=== PATIENT | male | born 1965 | race Caucasian/White ===

== ENCOUNTER 2017-07-28 10:54 | Emergency (ER) | payer SELFPAY ==
[2017-07-28] MEDS ORDERED: Enalaprilat 1.25 MG/ML SDV IVPUSH ONE (11:12)
[2017-07-28] MEDS ORDERED: Aspirin 81 MG Tab.Chew PO ONE (11:14)
--- NOTE | 2017-07-28 11:14 | EDM.PDOC ---
ED HPI GENERAL MEDICAL PROBLEM - General Chief Complaint: Chest Pain Stated Complaint: CHEST PAIN AND DIZZY Time Seen by Provider: 07/28/17 11:13 Source of Information: Reports: Patient - History of Present Illness INITIAL COMMENTS - FREE TEXT/NARRATIVE: HISTORY AND PHYSICAL: History of present illness: [Patient presents with chest tightness for 2 weeks, he has known hypertension and has been off of his blood pressure medications for a couple weeks lisinopril 40 mg daily is his usual medication. Is received several doses of IV medication lowering his blood pressure somewhat chest tightness has improved resolved unfortunately his IV line infiltrated knee refuses another IV I did provide Klonopin ON 0.1 mg by mouth]Blood pressure is improving he is asymptomatic no fever nausea vomiting diarrhea constipation chest pain shortness breath headache dizziness palpitation about a urine symptoms Lab as belo w Review of systems: As per history of present illness and below otherwise all systems reviewed and negative. Past medical history: As per history of present illness and as reviewed below otherwise noncontributory. Surgical history: As per history of present illness and as reviewed below otherwise noncontributory. Social history: No reported history of drug or alcohol abuse. Family history: As per history of present illness and as reviewed below otherwise noncontributory. Physical exam: HEENT: Atraumatic, normocephalic, pupils reactive, negative for conjunctival pallor or scleral icterus, mucous membranes moist, throat clear, neck supple, nontender, trachea midline. Lungs: Clear to auscultation, breath sounds equal bilaterally, chest nontender. Heart: S1S2, regular, negative for clicks, rubs, or JVD. Abdomen: Soft, nondistended, nontender. Negative for masses or hepatosplenomegaly. Negative for costovertebral tenderness. Pelvis: Stable nontender. Genitourinary: Deferred. Rectal: Deferred. Extremities: Atraumatic, negative for cords or calf pain. Neurovascular unremarkable. Neuro: Awake, alert, oriented. Cranial nerves II through XII unremarkable. Cerebellum unremarkable. Motor and sensory unremarkable throughout. Exam nonfocal. Diagnostics: [CBC CMP UA troponin Chest 1 view EKG] Therapeutics: [Normal saline 1 25 mL per hour Vasotec 1.25 mg IV Aspirin 324 mg chewable ] Lisinopril 40 mg by mouth daily #30 no refill Impression: [Medication noncompliance Hypertensive emergency -resolved] Definitive disposition and diagnosis as appropriate pending reevaluation and review of above. Headache Pain Score (Numeric/FACES): 7 - Related Data Allergies Allergy/AdvReac Type Severity Reaction Status Date / Time No Known Allergies Allergy Verified 07/28/17 11:07 Home Meds: Home Meds Lisinopril 40 mg PO DAILY 07/28/17 [History] Past Medical History Cardiovascular History: Reports: Hypertension Psychiatric History: Reports: PTSD Other Psychiatric History: hx of PTSD - Infectious Disease History Infectious Disease History: Reports: Chicken Pox Social & Family History - Family History Family Medical History: Noncontributory - Tobacco Use Smoking Status *Q: Never Smoker - Caffeine Use Caffeine Use: Reports: Coffee ED ROS GENERAL - Review of Systems Review Of Systems: ROS reveals no pertinent complaints other than HPI. ED EXAM, GENERAL - Physical Exam Exam: See Below Course - Vital Signs Last Recorded V/S: Last Vital Signs Temp 97.8 F 07/28/17 11:04 Pulse 53 L 07/28/17 12:19 Resp 18 07/28/17 11:04 BP 179/113 H 07/28/17 12:19 Pulse Ox 96 07/28/17 11:04 - Orders/Labs/Meds Orders: Active Orders 24 hr Category Date Time Status EKG Documentation Completion [RC] STAT Care 07/28/17 11:12 Active UA W/MICROSCOPIC [URIN] Stat Lab 07/28/17 12:55 Ordered Sodium Chloride 0.9% [Normal Saline] 1,000 ml Med 07/28/17 11:15 Active IV STAT Medication Orders Sodium Chloride (Normal Saline) 1,000 mls @ 125 mls/hr IV STAT JOE Last Admin: 07/28/17 11:22 Dose: 125 mls/hr Labs: Laboratory Tests 07/28/17 07/28/17 07/28/17 Range/Units 11:19 11:19 12:55 WBC 5.67 (4.0-11.0) K/uL RBC 5.84 (4.50-5.90) M/uL Hgb 16.2 (13.0-17.0) g/dL Hct 47.6 (38.0-50.0) % MCV 81.5 (80.0-98.0) fL MCH 27.7 (27.0-32.0) pg MCHC 34.0 (31.0-37.0) g/dL RDW Std Deviation 39.4 (28.0-62.0) fl RDW Coeff of Anjelica 13 (11.0-15.0) % Plt Count 205 (150-400) K/uL MPV 10.00 (7.40-12.00) fL Neut % (Auto) 51.4 (48.0-80.0) % Lymph % (Auto) 39.5 (16.0-40.0) % Graves % (Auto) 7.1 (0.0-15.0) % Eos % (Auto) 1.6 (0.0-7.0) % Baso % (Auto) 0.4 (0.0-1.5) % Neut # (Auto) 2.9 (1.4-5.7) K/uL Lymph # (Auto) 2.2 (0.6-2.4) K/uL Graves # (Auto) 0.4 (0.0-0.8) K/uL Eos # (Auto) 0.1 (0.0-0.7) K/uL Baso # (Auto) 0.0 (0.0-0.1) K/uL Nucleated RBC % 0.0 /100WBC Nucleated RBCs # 0 K/uL Sodium 141 (136-148) mmol/L Potassium 4.0 (3.5-5.1) mmol/L Chloride 104 (98-107) mmol/L Carbon Dioxide 24.8 (21.0-32.0) mmol/L BUN 11 (7.0-18.0) mg/dL Creatinine 1.2 (0.8-1.3) mg/dL Est Cr Clr Drug Dosing 85.63 mL/min Estimated GFR (MDRD) > 60.0 ml/min Glucose 100 (74-106) mg/dL Calcium 9.2 (8.5-10.1) mg/dL Total Bilirubin 0.5 (0.2-1.0) mg/dL AST 26 (15-37) IU/L ALT 30 (14-63) IU/L Alkaline Phosphatase 78 (46-116) U/L Troponin I < 0.050 (0.000-0.056) ng/mL Total Protein 7.9 (6.4-8.2) g/dL Albumin 4.3 (3.4-5.0) g/dL Globulin 3.6 H (2.0-3.5) g/dL Albumin/Globulin Ratio 1.2 L (1.3-2.8) Urine Color YELLOW Urine Appearance CLEAR Urine pH 5.5 (5.0-8.0) Ur Specific [place] >= 1.030 (1.001-1.035) Urine Protein NEGATIVE (NEGATIVE) mg/dL Urine Glucose (UA) NEGATIVE (NEGATIVE) mg/dL Urine Ketones NEGATIVE (NEGATIVE) mg/dL Urine Occult Blood NEGATIVE (NEGATIVE) Urine Nitrite NEGATIVE (NEGATIVE) Urine Bilirubin NEGATIVE (NEGATIVE) Urine Urobilinogen 0.2 (<2.0) EU/dL Ur Leukocyte Esterase NEGATIVE (NEGATIVE) Meds: Medications Generic Name Dose Route Start Last Admin Trade Name Freq PRN Reason Stop Dose Admin Sodium Chloride 1,000 mls @ 125 mls/hr 07/28/17 11:15 07/28/17 11:22 Normal Saline IV 125 mls/hr STAT JOE Administration Discontinued Medications Generic Name Dose Route Start Last Admin Trade Name Freq PRN Reason Stop Dose Admin Aspirin 324 mg 07/28/17 11:14 07/28/17 11:21 Aspirin PO 07/28/17 11:15 324 mg ONETIME ONE Administration Clonidine HCl 0.1 mg 07/28/17 11:56 07/28/17 12:00 Catapres PO 07/28/17 11:57 0.1 mg ONETIME ONE Administration Enalaprilat 1.25 mg 07/28/17 11:12 07/28/17 11:26 Vasotec Iv IVPUSH 07/28/17 11:13 1.25 mg ONETIME ONE Administration Metoprolol Tartrate 5 mg 07/28/17 11:15 07/28/17 12:19 Lopressor IVPUSH 07/28/17 11:26 5 mg Q5M JOE Administration Departure - Departure Time of Disposition: 13:31 Disposition: Home, Self-Care 01 Condition: Good Clinical Impression: Hypertension, Noncompliance with medication regimen - Discharge Information Referrals: PCP,None [Primary Care Provider] - Forms: ED Department Discharge Additional Instructions: Medication as prescribed one month no refill Follow-up and establish care with primary care, call the number provided below to schedule appointme Return if symptoms persist or worsen [facility] - Primary Care [address] [place] [id number] The following information is given to patients seen in the emergency department who are being discharged to home. This information is to outline your options for follow-up care. We provide all patients seen in our emergency department with a follow-up referral. The need for follow-up, as well as the timing and circumstances, are variable depending upon the specifics of your emergency department visit. If you don't have a primary care physician on staff, we will provide you with a referral. We always advise you to contact your personal physician following an emergency department visit to inform them of the circumstance of the visit and for follow-up with them and/or the need for any referrals to a consulting specialist. The emergency department will also refer you to a specialist when appropriate. This referral assures that you have the opportunity for follow-up care with a specialist. All of these measure are taken in an effort to provide you with optimal care, which includes your follow-up. Under all circumstances we always encourage you to contact your private physician who remains a resource for coordinating your care. When calling for follow-up care, please make the office aware that this follow-up is from your recent emergency room visit. If for any reason you are refused follow-up, please contact the [facility] emergency department at and asked to speak to the emergency department charge nurse. - My Orders Last 24 Hours: My Active Orders 07/28/17 11:12 EKG Documentation Completion [RC] STAT 07/28/17 11:15 Sodium Chloride 0.9% [Normal Saline] 1,000 ml IV STAT 07/28/17 12:55 UA W/MICROSCOPIC [URIN] Stat - Assessment/Plan Last 24 Hours: My Active Orders 07/28/17 11:12 EKG Documentation Completion [RC] STAT 07/28/17 11:15 Sodium Chloride 0.9% [Normal Saline] 1,000 ml IV STAT 07/28/17 12:55 UA W/MICROSCOPIC [URIN] Stat
[2017-07-28] MEDS ORDERED: Sodium Chloride 0.9% 1,000 ML IV SCH (11:15)
[2017-07-28] MEDS: Metoprolol Tartrate 5 MG/5 ML SDV IVPUSH SCH ×3 (11:43→12:19)
[2017-07-28] MEDS ORDERED: cloNIDine 0.1 MG Tab PO ONE (11:56)
--- NOTE | 2017-07-28 12:07 | CR ---
EXAMINATION: Portable chest radiograph. HISTORY: Shortness of breath. FINDINGS: The trachea is midline. The cardiomediastinal silhouette is within normal limits. No pulmonary infilt rates, effusions or pneumothorax. Osseous structures appear unremarkable. IMPRESSION: No acute cardiopulmonary process.
[2017-07-28 12:18] LABS: CHLORIDE,CL 104 mmol/L (98-107); SODIUM,NA 141 mmol/L (136-148)
== END 2017-07-28 13:40 | disposition home or self-care (01) ==
LOC: MW.ED 10:54
DX: I10 Essential (primary) hypertension (principal); Z91.14 Patient's other noncompliance with medication regimen; Z79.899 Other long term (current) drug therapy
CPT/HCPCS: 36415; 71045; 80053; 81001; 84484; 85025; 93005; 96361; 96374; 96375; 96376; 99285; A9270; J7040; 99283

== ENCOUNTER 2017-11-23 00:47 | Emergency (ER) | payer SELFPAY ==
--- NOTE | 2017-11-23 01:03 | EDM.PDOC ---
ED HPI GENERAL MEDICAL PROBLEM - General Chief Complaint: General Stated Complaint: MEDICAL CLEARANCE Time Seen by Provider: 11/23/17 01:02 - History of Present Illness INITIAL COMMENTS - FREE TEXT/NARRATIVE: HISTORY AND PHYSICAL: History of present illness: Patient 52-year-old white male presents custody of law enforcement for medical clearance she has no complaints does have history of hypertension Review of systems: As per history of present illness and below otherwise all systems reviewed and negative. Past medical history: As per history of present illness and as reviewed below otherwise noncontributory. Surgical history: As per history of present illness and as reviewed below otherwise noncontributory. Social history: No reported history of drug or alcohol abuse. Family history: As per history of present illness and as reviewed below otherwise noncontributory. Physical exam: HEENT: Atraumatic, normocephalic, pupils reactive, negative for conjunctival pallor or scleral icterus, mucous membranes moist, throat clear, neck supple, nontender, trachea midline. Lungs: Clear to auscultation, breath sounds equal bilaterally, chest nontender. Heart: S1S2, regular, negative for clicks, rubs, or JVD. Abdomen: Soft, nondistended, nontender. Negative for masses or hepatosplenomegaly. Negative for costovertebral tenderness. Pelvis: Stable nontender. Genitourinary: Deferred. Rectal: Deferred. Extremities: Atraumatic, negative for cords or calf pain. Neurovascular unremarkable. Neuro: Awake, alert, oriented. Cranial nerves II through XII unremarkable. Cerebellum unremarkable. Motor and sensory unremarkable throughout. Exam nonfocal. Diagnostics: None Therapeutics: None Impression: #1 medical clearance for incarceration Definitive disposition and diagnosis as appropriate pending reevaluation and review of above. denies pain Pain Score (Numeric/FACES): 0 - Related Data Allergies Allergy/AdvReac Type Severity Reaction Status Date / Time No Known Allergies Allergy Verified 11/23/17 00:56 Home Meds: Home Meds Lisinopril 40 mg PO DAILY 07/28/17 [History] Past Medical History HEENT History: Reports: None Cardiovascular History: Reports: Hypertension Respiratory History: Reports: None Gastrointestinal History: Reports: None Genitourinary History: Reports: None Musculoskeletal History: Reports: None Neurological History: Reports: None Psychiatric History: Reports: PTSD Other Psychiatric History: hx of PTSD Endocrine/Metabolic History: Reports: None Hematologic History: Reports: None Immunologic History: Reports: None Oncologic (Cancer) History: Reports: None Dermatologic History: Reports: None - Infectious Disease History Infectious Disease History: Reports: None - Past Surgical History Head Surgeries/Procedures: Reports: None Social & Family History - Family History Family Medical History: Noncontributory - Tobacco Use Smoking Status *Q: Current Status Unknown - Caffeine Use Caffeine Use: Reports: Coffee - Recreational Drug Use Recreational Drug Use: No ED ROS GENERAL - Review of Systems Review Of Systems: ROS reveals no pertinent complaints other than HPI. ED EXAM, GENERAL - Physical Exam Exam: See Below (See dictation) Course - Vital Signs Last Recorded V/S: Last Vital Signs Temp 36.7 C 11/23/17 00:56 Pulse 94 11/23/17 00:56 Resp 18 11/23/17 00:56 BP 137/98 H 11/23/17 00:56 Pulse Ox 98 11/23/17 00:56 Departure - Departure Time of Disposition: 01:03 Disposition: Home, Self-Care 01 Condition: Good Clinical Impression: Medical clearance for incarceration - Discharge Information *PRESCRIPTION DRUG MONITORING PROGRAM REVIEWED*: Not Applicable *COPY OF PRESCRIPTION DRUG MONITORING REPORT IN PATIENT FRANCOIS: Not Applicable Referrals: Jag Rousseau MD [Primary Care Provider] - Additional Instructions: The following information is given to patients seen in the emergency department who are being discharged to home. This information is to outline your options for follow-up care. We provide all patients seen in our emergency department with a follow-up referral. The need for follow-up, as well as the timing and circumstances, are variable depending upon the specifics of your emergency department visit. If you don't have a primary care physician on staff, we will provide you with a referral. We always advise you to contact your personal physician following an emergency department visit to inform them of the circumstance of the visit and for follow-up with them and/or the need for any referrals to a consulting specialist. The emergency department will also refer you to a specialist when appropriate. This referral assures that you have the opportunity for followup care with a specialist. All of these measure are taken in an effort to provide you with optimal care, which includes your followup. Under all circumstances we always encourage you to contact your private physician who remains a resource for coordinating your care. When calling for followup care, please make the office aware that this follow-up is from your recent emergency room visit. If for any reason you are refused follow-up, please contact the [facility] emergency department at and asked to speak to the emergency department charge nurse. Follow-up primary medical doctor as needed as discussed return as needed as discussed
== END 2017-11-23 01:08 | disposition home or self-care (01) ==
LOC: MW.ED 00:47
DX: Z02.9 Encounter for administrative examinations, unspecified (principal); I10 Essential (primary) hypertension
CPT/HCPCS: 99282

== ENCOUNTER 2018-04-08 12:27 | Emergency (ER) | payer BC ==
[2018-04-08] MEDS ORDERED: Ketorolac 60 MG/2 ML SDV IM ONE (13:44)
--- NOTE | 2018-04-08 14:03 | EDM.PDOC ---
ED HPI GENERAL MEDICAL PROBLEM - General Chief Complaint: Back Pain or Injury Stated Complaint: BACK PAIN Time Seen by Provider: 04/08/18 13:44 Source of Information: Reports: Patient History Limitations: Reports: No Limitations - History of Present Illness INITIAL COMMENTS - FREE TEXT/NARRATIVE: HISTORY AND PHYSICAL: History of present illness: Patient is a 52-year-old male here with complaint of mid to lower back pain. He states he woke up with it this morning and denies any injury or heavy lifting prior. He states it is a constant sharp pain. He denies any dysuria, hematuria, abdominal pain, nausea, vomiting, diarrhea, chest pain, shortness of breath, fevers or chills, saddle anesthesia, loss of bowel or bladder control, lower extremity weakness. He does note that it is more painful when he takes a deep breath in. He states he has a history of back pain 20+ years ago but has not had problems with it since. Past medical history significant for hypertension. Review of systems: As per history of present illness and below otherwise all systems reviewed and negative. Past medical history: As per history of present illness and as reviewed below otherwise noncontributory. Surgical history: As per history of present illness and as reviewed below otherwise noncontributory. Social history: No reported history of drug or alcohol abuse. Family history: As per history of present illness and as reviewed below otherwise noncontributory. Physical exam: General: Patient sitting comfortably in no acute distress and nontoxic appearing HEENT: Atraumatic, normocephalic, pupils reactive, negative for conjunctival pallor or scleral icterus, mucous membranes moist, throat clear, neck supple, nontender, trachea midline. No meningeal signs. Lungs: Clear to auscultation, breath sounds equal bilaterally, chest nontender. Heart: S1S2, regular, negative for clicks, rubs, or overt murmur. Abdomen: Soft, nondistended, nontender. Negative for masses or hepatosplenomegaly. Left CVA tenderness to palpation. Pelvis: Stable nontender. Genitourinary: Deferred. Rectal: Deferred. Spine: No spinous tenderness or step offs to palpation. Left thoracic and lumbar paraspinal tenderness with left CVA tenderness. Extremities: Atraumatic, negative for cords or calf pain. Neurovascular unremarkable. Normal lower extremity strength. Neuro: Awake, alert, oriented. Cranial nerves II through XII unremarkable. Cerebellum unremarkable. Motor and sensory unremarkable throughout. Exam nonfocal. Notes: Diagnostics: UA, thoracolumbar spine x-ray Therapeutics: Toradol 60mg IM Prescriptions: Tramadol Norflex Impression: Thoracolumbar back pain Plan: 1. Heat or ice and Tylenol and Motrin as needed. You may take tramadol and norflex as needed for severe pain. 2. Follow-up with primary care provider 3. Return to ED as needed as discussed Definitive disposition and diagnosis as appropriate pending reevaluation and review of above. Lower Back Pain Score (Numeric/FACES): 7 - Related Data Allergies Allergy/AdvReac Type Severity Reaction Status Date / Time No Known Allergies Allergy Verified 04/08/18 12:43 Home Meds: Home Meds Lisinopril 40 mg PO DAILY 07/28/17 [History] Orphenadrine [Norflex] 100 mg PO BID PRN #10 tab 04/08/18 [Rx] traMADol [Ultram] 50 mg PO Q6H PRN #15 tab 04/08/18 [Rx] Past Medical History - Past Health History Medical/Surgical History: Denies Medical/Surgical History HEENT History: Reports: None Cardiovascular History: Reports: Hypertension Respiratory History: Reports: None Gastrointestinal History: Reports: None Genitourinary History: Reports: None Musculoskeletal History: Reports: None Neurological History: Reports: None Psychiatric History: Reports: PTSD Other Psychiatric History: hx of PTSD Endocrine/Metabolic History: Reports: None Hematologic History: Reports: None Immunologic History: Reports: None Oncologic (Cancer) History: Reports: None Dermatologic History: Reports: None - Infectious Disease History Infectious Disease History: Reports: None - Past Surgical History Head Surgeries/Procedures: Reports: None Social & Family History - Family History Family Medical History: Noncontributory - Tobacco Use Smoking Status *Q: Never Smoker - Caffeine Use Caffeine Use: Reports: Coffee - Recreational Drug Use Recreational Drug Use: No ED ROS GENERAL - Review of Systems Review Of Systems: ROS reveals no pertinent complaints other than HPI. ED EXAM,LOWER BACK PAIN/INJURY - Physical Exam Exam: See Below (see dictation) Course - Vital Signs Last Recorded V/S: Last Vital Signs Temp 96.7 F 04/08/18 12:40 Pulse 62 04/08/18 12:40 Resp 18 04/08/18 12:40 BP 161/95 H 04/08/18 12:40 Pulse Ox 98 04/08/18 12:40 - Orders/Labs/Meds Labs: Laboratory Tests 04/08/18 Range/Units 13:50 Urine Color YELLOW Urine Appearance CLEAR Urine pH 6.0 (5.0-8.0) Ur Specific [place] 1.025 (1.001-1.035) Urine Protein NEGATIVE (NEGATIVE) mg/dL Urine Glucose (UA) NEGATIVE (NEGATIVE) mg/dL Urine Ketones NEGATIVE (NEGATIVE) mg/dL Urine Occult Blood NEGATIVE (NEGATIVE) Urine Nitrite NEGATIVE (NEGATIVE) Urine Bilirubin NEGATIVE (NEGATIVE) Urine Urobilinogen 0.2 (<2.0) EU/dL Ur Leukocyte Esterase NEGATIVE (NEGATIVE) Urine RBC 0-1 (0-2/HPF) Urine WBC 0-1 (0-5/HPF) Ur Epithelial Cells RARE (NONE-FEW) Urine Bacteria RARE (NEGATIVE) Meds: Medications Discontinued Medications Generic Name Dose Route Start Last Admin Trade Name Freq PRN Reason Stop Dose Admin Ketorolac Tromethamine 60 mg 04/08/18 13:44 04/08/18 13:58 Toradol IM 04/08/18 13:45 60 mg ONETIME ONE Administration Departure - Departure Time of Disposition: 15:25 Disposition: Home, Self-Care 01 Condition: Good Clinical Impression: Thoracolumbar back pain - Discharge Information Prescriptions: Orphenadrine [Norflex] 100 mg PO BID PRN #10 tab PRN Reason: Spasms traMADol [Ultram] 50 mg PO Q6H PRN #15 tab PRN Reason: Pain (Severe 7-10) Referrals: PCP,None [Primary Care Provider] - Forms: ED Department Discharge Additional Instructions: The following information is given to patients seen in the emergency department who are being discharged to home. This information is to outline your options for follow-up care. We provide all patients seen in our emergency department with a follow-up referral. The need for follow-up, as well as the timing and circumstances, are variable depending upon the specifics of your emergency department visit. If you don't have a primary care physician on staff, we will provide you with a referral. We always advise you to contact your personal physician following an emergency department visit to inform them of the circumstance of the visit and for follow-up with them and/or the need for any referrals to a consulting specialist. The emergency department will also refer you to a specialist when appropriate. This referral assures that you have the opportunity for follow-up care with a specialist. All of these measure are taken in an effort to provide you with optimal care, which includes your follow-up. Under all circumstances we always encourage you to contact your private physician who remains a resource for coordinating your care. When calling for follow-up care, please make the office aware that this follow-up is from your recent emergency room visit. If for any reason you are refused follow-up, please contact the [facility] Emergency Department at and asked to speak to the emergency department charge nurse. [facility] [address] [place] [address] [id number] [address] [id number] 1. Heat or ice and Tylenol and Motrin as needed. You may take tramadol and norflex as needed for severe pain. Do not drive while taking these medications as they may make you drowsy 2. Follow-up with primary care provider 3. Return to ED as needed as discussed
--- NOTE | 2018-04-08 15:16 | CR ---
EXAMINATION: Thoracolumbar spine HISTORY: Back pain COMPARISON: None TECHNIQUE: AP and lateral images provided of the thoracolumbar spine. FINDINGS: The thoracolumbar spinal alignment is normal. The vertebral body heights and disc spaces appear well-maintained. There is no fracture or acute osseous abnormality. Bone mineralization is normal. IMPRESSION: 1. No acute findings demonstrated.
== END 2018-04-08 15:46 | disposition home or self-care (01) ==
LOC: MW.ED 12:27
DX: M54.5 Low back pain (principal); I10 Essential (primary) hypertension; Z79.899 Other long term (current) drug therapy
CPT/HCPCS: 72080; 81001; 96372; 99284; J1885

== ENCOUNTER 2018-05-12 16:09 | Emergency (ER) | payer BC ==
[2018-05-12] MEDS ORDERED: Sodium Chloride 0.9% 2.5 ML Syringe FLUSH PRN (16:19)
[2018-05-12] MEDS ORDERED: Nitroglycerin 0.4 MG Tab.SL SL PRN (16:19)
[2018-05-12] MEDS ORDERED: Aspirin 81 MG Tab.Chew PO ONE (16:19)
[2018-05-12] MEDS ORDERED: Sodium Chloride 0.9% 10 ML Syringe FLUSH PRN (16:19)
--- NOTE | 2018-05-12 16:44 | EDM.PDOC ---
ED HPI GENERAL MEDICAL PROBLEM - General Chief Complaint: Chest Pain Stated Complaint: CHEST PAIN Time Seen by Provider: 05/12/18 16:17 Source of Information: Reports: Patient History Limitations: Reports: No Limitations - History of Present Illness INITIAL COMMENTS - FREE TEXT/NARRATIVE: Presents reporting chest pain since this morning. He characterizes the pain as a stabbing and aching tightness in his left precordial area that does not radiate. The tightness comes and goes and is accompanied by shortness of breath nausea and lightheadedness. The patient states that he has had numerous times before but that it usually "passes". He has a history of acid reflux but a year ago went off [employer] cold turkey and has not had a recurrence. He has not been on any undue stress of late. He does not smoke. He has essential hypertension for which he takes medication. He does not know his dad or brothers. His mother has hypertension and diabetes. The patient states that ever since he has been on blood pressure medication whenever he gets up from sleep in the morning or after a nap he has a headache like "my heads a pimple and its ready to pop", he sees spots and he is lightheaded. After he gets up and walks around that sensation resolves. Left chest Pain Score (Numeric/FACES): 5 - Related Data Allergies Allergy/AdvReac Type Severity Reaction Status Date / Time No Known Allergies Allergy Verified 05/12/18 16:19 Home Meds: Home Meds Lisinopril 40 mg PO DAILY 07/28/17 [History] Past Medical History - Past Health History Medical/Surgical History: Denies Medical/Surgical History HEENT History: Reports: None Cardiovascular History: Reports: Hypertension Respiratory History: Reports: None Gastrointestinal History: Reports: None Genitourinary History: Reports: None Musculoskeletal History: Reports: None Neurological History: Reports: None Psychiatric History: Reports: PTSD Other Psychiatric History: hx of PTSD Endocrine/Metabolic History: Reports: None Hematologic History: Reports: None Immunologic History: Reports: None Oncologic (Cancer) History: Reports: None Dermatologic History: Reports: None - Infectious Disease History Infectious Disease History: Reports: None - Past Surgical History Head Surgeries/Procedures: Reports: None Social & Family History - Family History Family Medical History: Noncontributory - Tobacco Use Smoking Status *Q: Never Smoker - Caffeine Use Caffeine Use: Reports: Coffee - Recreational Drug Use Recreational Drug Use: No ED ROS GENERAL - Review of Systems Review Of Systems: ROS reveals no pertinent complaints other than HPI. ED EXAM, GENERAL - Physical Exam Exam: See Below Exam Limited By: No Limitations General Appearance: Alert, No Apparent Distress, Other (Became sweaty and nauseous and anxious just with the IV start) Ears: Normal External Exam Nose: Normal Inspection Throat/Mouth: Normal Inspection Head: Atraumatic, Normocephalic Neck: Normal Inspection Respiratory/Chest: No Respiratory Distress, Lungs Clear, Normal Breath Sounds Cardiovascular: Normal Peripheral Pulses, Regular Rate, Rhythm, No Murmur Peripheral Pulses: 3+: Radial (L), Radial (R) GI/Abdominal: Soft Extremities: Normal Inspection, No Pedal Edema Neurological: Alert, Oriented Psychiatric: Normal Affect, Normal Mood Skin Exam: Warm, Dry, Intact, Normal Color, No Rash Lymphatic: No Adenopathy EKG INTERPRETATION EKG Date: 05/12/18 Time: 16:11 Rhythm: NSR Rate (Beats/Min): 73 [place]: Normal P-Wave: Present QRS: RBBB ST-T: Normal Course - Vital Signs Last Recorded V/S: Last Vital Signs Temp 37.2 C 05/12/18 16:19 Pulse 80 05/12/18 16:19 Resp 16 05/12/18 16:19 BP 175/119 H 05/12/18 16:19 Pulse Ox 99 05/12/18 16:19 - Orders/Labs/Meds Orders: Active Orders 24 hr Category Date Time Status EKG Documentation Completion [RC] STAT Care 05/12/18 16:19 Active Chest 1V Frontal [CR] Stat Exams 05/12/18 16:19 Ordered CBC WITH AUTO DIFF [HEME] Stat Lab 05/12/18 16:19 Ordered COMPREHENSIVE METABOLIC PN,CMP [CHEM] Stat Lab 05/12/18 16:19 Ordered TROPONIN I [CHEM] Stat Lab 05/12/18 16:19 Ordered Nitroglycerin [Nitrostat] Med 05/12/18 16:19 Active 0.4 mg SL Q5M PRN Sodium Chloride 0.9% [Saline Flush] Med 05/12/18 16:19 Active 10 ml FLUSH ASDIRECTED PRN Sodium Chloride 0.9% [Saline Flush] Med 05/12/18 16:19 Active 2.5 ml FLUSH ASDIRECTED PRN Saline Lock Insert [OM.PC] Stat Oth 05/12/18 16:19 Ordered Medication Orders Nitroglycerin (Nitrostat) 0.4 mg SL Q5M PRN PRN Reason: Chest Pain Sodium Chloride (Saline Flush) 10 ml FLUSH ASDIRECTED PRN PRN Reason: Keep Vein Open Sodium Chloride (Saline Flush) 2.5 ml FLUSH ASDIRECTED PRN PRN Reason: Keep Vein Open Meds: Medications Generic Name Dose Route Start Last Admin Trade Name Freq PRN Reason Stop Dose Admin Nitroglycerin 0.4 mg 05/12/18 16:19 Nitrostat SL Q5M PRN Chest Pain Sodium Chloride 10 ml 05/12/18 16:19 Saline Flush FLUSH ASDIRECTED PRN Keep Vein Open Sodium Chloride 2.5 ml 05/12/18 16:19 Saline Flush FLUSH ASDIRECTED PRN Keep Vein Open Discontinued Medications Generic Name Dose Route Start Last Admin Trade Name Freq PRN Reason Stop Dose Admin Aspirin 324 mg 05/12/18 16:19 Aspirin PO 05/12/18 16:20 ONETIME ONE - Re-Assessments/Exams Free Text/Narrative Re-Assessment/Exam: 05/12/18 18:21 Patient totally pain free after 1 nitro. Given GI cocktail. The patient states "I cannot remember the last time I felt as relaxed as I do right now". Departure - Departure Time of Disposition: 18:23 Disposition: Home, Self-Care 01 Condition: Good Clinical Impression: Chest pain Qualifiers: Chest pain type: precordial pain Qualified Code(s): R07.2 - Precordial pain Hypertension Qualifiers: Hypertension type: essential hypertension Qualified Code(s): I10 - Essential ( primary) hypertension Referrals: Kathe Multani MD [Physician] - Forms: ED Department Discharge Additional Instructions: 1. You MUST follow up in cardiology. You need a stress test and full evaluation. 2. Be sure to take your blood pressure medication. 3. Return promptly for chest pain, shortness of breath or other concerning symptoms.
[2018-05-12 17:21] LABS: CHLORIDE,CL 104 mmol/L (98-107); SODIUM,NA 139 mmol/L (136-148)
[2018-05-12] MEDS ORDERED: Alum Hydrox/Mag Hydrox/Simeth 15 ML, Lidocaine 2% 5 ML PO ONE ×2 (17:28)
--- NOTE | 2018-05-12 17:49 | CR ---
Indication: Chest pain Technique: Chest 1 view Comparison: 07/28/2017. Findings/Impression: Cardiovascular and mediastinum: Grossly stable cardiomediastinal silhouette. Lungs and pleural space: Lungs are clear. No sign of infiltrate or mass. No sign of pleural effusion. No pneumothorax. Bones and soft tissues: No significant findings. Dictated by Jose Mendosa MD @ 05/12/2018 5:47:08 PM Dictated by: Jose Mendosa MD @ 05/12/2018 17:47:20 (Electronically Signed)
== END 2018-05-12 18:40 | disposition home or self-care (01) ==
LOC: MW.ED 16:09
DX: R07.2 Precordial pain (principal); I10 Essential (primary) hypertension; Z79.899 Other long term (current) drug therapy
CPT/HCPCS: 36415; 71045; 80053; 84484; 85025; 93005; 99284; A9270; 99283